=== PATIENT | male | born 1945 | race Caucasian/White ===

== ENCOUNTER 2022-09-30 09:18 | Emergency (ER) | payer OTHER ==
[~2022-09-30] VITALS: Ht 177.8 cm; Wt 107.0 kg
[2022-09-30] MEDS ORDERED: METOPROLOL SUC100 MG PO (09:43)
[2022-09-30] MEDS ORDERED: ATORVASTATIN CA20 MG PO (09:44)
[2022-09-30] MEDS ORDERED: COZAAR25 MG PO (09:44)
[2022-09-30] MEDS ORDERED: SPIRONOLACTONE25 MG PO (09:44)
== END 2022-09-30 14:23 | disposition home or self-care (01) ==
LOC: ER 09:18 → EDBD 09:26 → ER 14:23
DX: K57.32 Diverticulitis of large intestine without perforation or abscess without bleeding (principal); I10 Essential (primary) hypertension; Z95.1 Presence of aortocoronary bypass graft